=== PATIENT | male | born 1950 | race American Indian/Alaskan Native ===

== ENCOUNTER 2017-11-25 17:07 | Observation (INO) | payer MEDICARE, OTHER ==
[2017-11-25 17:17] VITALS: BMI 23.6
[2017-11-25 17:48] LABS: BASO # 0.01 K/mm3 (0.0-2.0); BASO % 0.3 % (0.0-3.0); GRAN # 1.72 (1.4-6.5); HEMOGLOBIN 11.8 g/dL (14.0-18.0); LYMPH # 1.5 (1.2-3.4); LYMPH % 43.6 % (22.0-35.0); MEAN CELL VOLUME 90.9 fl (80.0-105.0); MEAN CORPUSCULAR HEMOGLOBIN 31.6 pg (25.0-35.0); MEAN CORPUSCULAR HGB CONC 34.8 g/dl (31.0-37.0); MEAN PLATELET VOLUME 9.5 fl (7.0-11.0); MONO # 0.2 (0.1-0.6); MONO % 6.1 % (1.0-6.0); RBC 3.73 10^6/uL (3.5-6.1); WHITE BLOOD COUNT 3.4 10^3/ul (4.5-11.0)
[2017-11-25 18:04] LABS: ALB/GLOB RATIO 1.3 (1.1-1.8); ALBUMIN 4.2 g/dL (3.0-4.8); ALT/SGPT 60 U/L (7-56); AST/SGOT 228 U/L (17-59); BLOOD UREA NITROGEN 8 mg/dL (7-21); CALCIUM 10.1 mg/dL (8.4-10.5); GFR AFRICAN-AMERICAN > 60; GFR NON-AFRICAN AMERICAN > 60; MAGNESIUM 1.4 mg/dL (1.7-2.2)
[2017-11-25 18:11] LABS: INR 1.16 (0.93-1.08); PROTHROMBIN TIME 13.3 SECONDS (9.4-12.5)
[2017-11-25 18:12] LABS: B-TYPE NATRIURETIC PEPTIDE 108 pg/mL (0-450); PARTIAL THROMBOPLASTIN TIME 28.1 Seconds (25.1-36.5); TROPONIN I < 0.01 ng/mL
--- NOTE | 2017-11-25 19:01 | RAD ---
HISTORY: chest pain COMPARISON: No prior. FINDINGS: LUNGS: No active pulmonary disease. PLEURA: No significant pleural effusion identified, no pneumothorax apparent. CARDIOVASCULAR: Normal. OSSEOUS STRUCTURES: No significant abnormalities. VISUALIZED UPPER ABDOMEN: Normal. OTHER FINDINGS: None. IMPRESSION: No active disease.
[2017-11-25 19:56] LABS: URINE BILIRUBIN NEGATIVE (NEGATIVE); URINE BLOOD NEGATIVE (NEGATIVE); URINE GLUCOSE (UA) NEGATIVE (NEGATIVE); URINE LEUKOCYTE ESTERASE NEGATIVE Leu/uL (NEGATIVE); URINE NITRATE NEGATIVE (NEGATIVE); URINE PROTEIN TRACE mg/dL (<30 mg/dL)
[2017-11-25 19:57] LABS: URINE APPEARANCE CLEAR (CLEAR); URINE COLOR YELLOW (YELLOW)
--- NOTE | 2017-11-25 20:05 | ED PDOC ---
Arrival/HPI - General Chief Complaint: Chest Pain Time Seen by Provider: 11/25/17 17:25 Historian: Patient - History of Present Illness Narrative History of Present Illness (Text): 11/25/17 20:04 67yo male was bib BLS for complaint of sharp retrosternal chest pain since this morning. States pain is intermittent, but feels like "stabbing" pain. He did not take any medication for the pain. States he was seen at [facility] last year for same pain and was DC after negative stress test. Hr denies SOB, diaphoresis, cough, recent URI, Le edema, calf pain, fever, any other complaint. Past Medical History - Provider Review Nursing Documentation Reviewed: Yes - Cardiac Hx Cardiac Disorders: Yes Hx Hypertension: Yes - Musculoskeletal/Rheumatological Hx Musculoskeletal Disorders: Yes Hx Arthritis: Yes - Psychiatric Hx Substance Use: No Family/Social History - Physician Review Nursing Documentation Reviewed: Yes Family/Social History: Unknown Family HX Smoking Status: Heavy Smoker > 10 Cigarettes Daily Hx Alcohol Use: Yes Frequency of alcohol use: Few days per week Hx Substance Use: No Allergies/Home Meds Allergies/Adverse Reactions: Allergies No Known Allergies Allergy (Verified 11/25/17 17:17) Home Medications: Home Meds Medication Instructions Recorded Confirmed Unobtainable 11/25/17 11/25/17 Review of Systems - Physician Review All systems were reviewed & negative as marked: Yes - Review of Systems Constitutional: Normal Eyes: Normal ENT: Normal Respiratory: Normal Cardiovascular: Chest Pain. absent: Palpitations, Edema, Calf Pain, NORIEGA, Orthopnea Gastrointestinal: Normal Genitourinary Male: Normal Musculoskeletal: Normal Skin: Normal Neurological: Normal Endocrine: Normal Hemo/Lymphatic: Normal Psychiatric: Normal Physical Exam Vital Signs Reviewed: Yes Vital Signs Temp Pulse Resp BP Pulse Ox 11/25/17 23:07 76 18 154/100 H 100 11/25/17 22:30 80 175/102 H 11/25/17 17:25 98.0 F 86 18 136/88 96 Temperature: Afebrile Blood Pressure: Normal Pulse: Regular Respiratory Rate: Normal Appearance: Positive for: Well-Appearing, Non-Toxic, Comfortable Pain Distress: None Mental Status: Positive for: Alert and Oriented X 3 - Systems Exam Head: Present: Atraumatic, Normocephalic Pupils: Present: PERRL Extroacular Muscles: Present: EOMI Conjunctiva: Present: Normal Mouth: Present: Moist Mucous Membranes Neck: Present: Normal Range of Motion Respiratory/Chest: Present: Clear to Auscultation, Good Air Exchange. No: Respiratory Distress, Accessory Muscle Use, Wheezes, Decreased Breath Sounds, Rales, Retracting, Rhonchi, Tachypneic Cardiovascular: Present: Regular Rate and Rhythm, Normal S1, S2. No: Murmurs Abdomen: Present: Normal Bowel Sounds. No: Tenderness, Distention, Peritoneal Signs Back: Present: Normal Inspection Upper Extremity: Present: Normal Inspection. No: Cyanosis, Edema Lower Extremity: Present: Normal Inspection. No: Edema Neurological: Present: GCS=15, CN II-XII Intact, Speech Normal Skin: Present: Warm, Dry, Normal Color. No: Rashes Psychiatric: Present: Alert, Oriented x 3, Normal Insight, Normal Concentration Medical Decision Making ED Course and Treatment: 11/26/17 01:24 PT present with stated history. His first CE was negative. Potassium and Magnesium was repleted. EKG NSR @66bpmm. however secondary to pt's age, he will be admitted for further evaluation. Case was DW Dr. Hazel, while he was in ED and he accepted pt. He saw patent by the bedside. - Lab Interpretations Lab Results: 11/25/17 17:21 11/25/17 17:21 Lab Results 11/25/17 19:45: Urine Opiates Screen Negative, Urine Methadone Screen Negative, Ur Barbiturates Screen Negative, Ur Phencyclidine Scrn Negative, Ur Amphetamines Screen Negative, U Benzodiazepines Scrn Negative, U Oth Cocaine Metabols Negative, U Cannabinoids Screen Negative 11/25/17 19:45: Urine Color Yellow, Urine Appearance Clear, Urine pH 6.0, Ur Specific [place] 1.015, Urine Protein Trace H, Urine Glucose (UA) Negative, Urine Ketones Trace H, Urine Blood Negative, Urine Nitrate Negative, Urine Bilirubin Negative, Urine Urobilinogen 1.0 H, Ur Leukocyte Esterase Negative, Urine RBC 0 - 2, Urine WBC 0 - 2, Ur Epithelial Cells 0 - 2 11/25/17 17:21: Alcohol, Quantitative 137 H 11/25/17 17:21: Triglycerides 765 H, Cholesterol 197, LDL Cholesterol Direct 49 , HDL Cholesterol > 110 H 11/25/17 17:21: Sodium 144, Potassium 3.4 L, Chloride 100, Carbon Dioxide 28, Anion Gap 20, BUN 8, Creatinine 0.9, Est GFR ( Amer) > 60, Est GFR (Non- Af Amer) > 60, Random Glucose 98, Calcium 10.1, Magnesium 1.4 L, Total Bilirubin 2.3 H, AST 228 H, ALT 60 H, Alkaline Phosphatase 86, Lactate Dehydrogenase 671, Total Creatine Kinase 94, Troponin I < 0.01, NT-Pro-B Natriuret Pep 108, Total Protein 7.6, Albumin 4.2, Globulin 3.3, Albumin/ Globulin Ratio 1.3 11/25/17 17:21: PT 13.3 H, INR 1.16 H, APTT 28.1, D-Dimer, Quantitative 221 11/25/17 17:21: WBC 3.4 L, RBC 3.73, Hgb 11.8 L, Hct 33.9 L, MCV 90.9, MCH 31.6 , MCHC 34.8, RDW 16.0 H, Plt Count 199, MPV 9.5, Gran % 50.0, Lymph % (Auto) 43.6 H, [place] % (Auto) 6.1 H, Eos % (Auto) 0.0 L, Baso % (Auto) 0.3, Gran # 1.72 , Lymph # (Auto) 1.5, [place] # (Auto) 0.2, Eos # (Auto) 0.0, Baso # (Auto) 0.01 - RAD Interpretation Radiology Orders: 11/25/17 17:26 CHEST PORTABLE [RAD] Stat - Medication Orders Current Medication Orders: Aspirin (Ecotrin) 81 mg PO DAILY SUSY Atorvastatin Calcium (Lipitor) 40 mg PO DAILY SUSY Chlordiazepoxide (Librium) 25 mg PO Q4H PRN PRN Reason: Withdrawl Enoxaparin Sodium (Lovenox) 40 mg SC HS SUSY PRN Reason: Protocol Last Admin: 11/25/17 22:29 Dose: 40 mg MAR aPTT Document 11/25/17 22:29 AD (Rec: 11/25/17 22:30 AD [id number]) aPTT aPTT (secs) 28.1 Subcutaneous Administrations Document 11/25/17 22:29 AD (Rec: 11/25/17 22:30 AD [id number]) Injection Site MAR Injection Site Left Abdomen Charges for Administration # of Subcutaneous Administrations 1 Folic Acid (Folic Acid) 1 mg PO DAILY [facility] Haloperidol Lactate (Haldol) 2 mg IM Q8H PRN PRN Reason: Agitation Magnesium Sulfate 2 gm/ Sodium (Chloride) 104 mls @ 102 mls/hr IVPB Q3H [facility] Stop: 11/26/17 01:47 Last Admin: 11/25/17 22:51 Dose: 102 mls/hr eMAR Start Stop Document 11/25/17 22:51 AD (Rec: 11/25/17 22:51 AD [id number]) Intravenous Solution Start Date 11/25/17 Start Time 22:51 Multivitamins/Vitamin C 10 ml/Thiamine HCl 100 mg/ Folic Acid 1 mg/ Sodium Chloride 1,011.2 mls @ 100 mls/hr IV .Q10H7M [facility] Last Admin: 11/25/17 22:52 Dose: 100 mls/hr eMAR Start Stop Document 11/25/17 22:52 AD (Rec: 11/25/17 22:52 AD [id number]) Intravenous Solution Start Date 11/25/17 Start Time 22:52 Lorazepam (Ativan) 1 mg IVP Q4H PRN PRN Reason: Symptoms of alcohol withdrawl Metoprolol Tartrate (Lopressor) 25 mg PO BID [facility] Last Admin: 11/25/17 22:30 Dose: 25 mg MAR Pulse and Blood Pressure Document 11/25/17 22:30 AD (Rec: 11/25/17 22:31 AD [id number]) Pulse Pulse Rate (60-90) 80 Blood Pressure Blood Pressure (100/60-150/90) 175/102 Multivitamins/Minerals (Therapeutic-M Tab) 1 tab PO DAILY [facility] Nicotine (Nicoderm Cq) 1 patch TD DAILY [facility] Last Admin: 11/25/17 23:46 Dose: 1 patch MAR Transdermal Patch Site Document 11/25/17 23:46 CATHERINE (Rec: 11/25/17 23:46 CATHERINE [id number]) Transdermal Patch Site Transdermal Patch Site Left Shoulder [id number] Ethyl Esters (Lovaza) 2 gm PO BID [facility] Last Admin: 11/25/17 23:46 Dose: 2 gm Thiamine HCl (Vitamin B1 Tab) 100 mg PO DAILY [facility] Trazodone HCl (Desyrel) 50 mg PO HS PRN PRN Reason: Insomnia Discontinued Medications Aspirin (Aspirin) 325 mg PO STAT STA Stop: 11/25/17 17:26 Last Admin: 11/25/17 17:41 Dose: 325 mg Magnesium Oxide (Mag-Ox) 400 mg PO STAT STA Stop: 11/25/17 20:09 Last Admin: 11/25/17 20:46 Dose: 400 mg Potassium Chloride (K-Dur 20 Meq Er Tab) 40 meq PO STAT STA Stop: 11/25/17 20:09 Last Admin: 11/25/17 20:46 Dose: 40 meq Potassium Chloride (K-Dur 20 Meq Er Tab) 40 meq PO STAT STA Stop: 11/25/17 21:40 Last Admin: 11/25/17 22:30 Dose: 40 meq Disposition/Present on Arrival - Present on Arrival Any Indicators Present on Arrival: No History of DVT/PE: No History of Uncontrolled Diabetes: No Urinary Catheter: No History of Decub. Ulcer: No History Surgical Site Infection Following: None - Disposition Have Diagnosis and Disposition been Completed?: Yes Diagnosis: Chest pain Disposition: HOSPITALIZED Disposition Time: 20:00 Patient Problems: Current Active Problems Problem Status Onset Chest pain Acute Condition: FAIR
[2017-11-25] MEDS ORDERED: Magnesium Oxide 400 mg Tab UD PO STA (20:08)
[2017-11-25] MEDS ORDERED: Potassium Chloride 20 mEq ER Tab PO STA ×2 (20:08→21:39)
[2017-11-25 20:13] LABS: BARBITURATES, UR NEGATIVE (NEGATIVE); BENZODIAZEPINES, UR NEGATIVE (NEGATIVE); OPIATES, UR NEGATIVE (NEGATIVE); PHENCYCLIDINE, UR NEGATIVE (NEGATIVE)
[2017-11-25 20:17] LABS: URINE EPITHELIAL CELLS 0 - 2 /hpf (0-5); URINE RBC 0 - 2 /hpf (0-2); URINE WBC 0 - 2 /hpf (0-6)
[2017-11-25] MEDS ORDERED: Enoxaparin 40 mg Syringe SC SCH (22:00)
[2017-11-25 22:01] LABS: LDL CHOLESTEROL 49 mg/dL (0-129)
--- NOTE | 2017-11-25 22:01 | CP.PCM.HP ---
History of Present Illness - History of Present Illness History of Present Illness: 67 year old AA male with past medical history of Arthitis, HTN, presents because of chest pain. Patient states chest pain began 2 weeks ago, sudden onset , non reproducible. He says its located in left upper chest, does not radiate to arm or jaw, and describes it as a 8/10. He states the pain comes and goes, and it stays about the same. Does not worsen with activity. He also says he has some mild shortness of breath with the pain where he has to pause to catch his breath. He denies any nausea, vomiting, fever, chills, sore throat, or any other complaints at this time. PMH: Arthritis, HTN PSH: none Allergies: NKDA Social: says he cut down cigarettes from 2 packs to 4 cigs a day, alcohol every couple of days and rinks 1/2 a pint, occasional marijuana use, last marijuana use was a month ago Meds: does not recall, will confirm Family Hx: Arthritis Present on Admission - Present on Admission Any Indicators Present on Admission: No Review of Systems - Constitutional Constitutional: absent: Anorexia, Chills, Fever, Weakness - EENT Eyes: absent: Change in Vision Ears: absent: Ear Discharge, Ear Pain Nose/Mouth/Throat: absent: Nasal Congestion, Nasal Discharge - Cardiovascular Cardiovascular: Chest Pain, Dyspnea. absent: Irregular Heart Rhythm, Pain Radiating to Arm/Neck/Jaw, Lightheadedness, Radiating Pain, Rapid Heart Rate, Syncope - Respiratory Respiratory: Dyspnea. absent: Cough, Chest Congestion - Musculoskeletal Musculoskeletal: absent: Arthralgias, Joint Swelling - Neurological Neurological: absent: Dizziness, Numbness, Headaches, Tingling, Weakness Past Patient History - Past Social History Smoking Status: Heavy Smoker > 10 Cigarettes Daily - CARDIAC Hx Cardiac Disorders: Yes Hx Hypertension: Yes - MUSCULOSKELETAL/RHEUMATOLOGICAL Hx Musculoskeletal Disorders: Yes Hx Arthritis: Yes - PSYCHIATRIC Hx Substance Use: No - SURGICAL HISTORY Hx Surgeries: No Meds Allergies/Adverse Reactions: Allergies Allergy/AdvReac Type Severity Reaction Status Date / Time No Known Allergies Allergy Verified 11/25/17 17:17 Physical Exam - Constitutional Appears: Non-toxic, No Acute Distress, Unkempt - Head Exam Head Exam: ATRAUMATIC, NORMAL INSPECTION, NORMOCEPHALIC - Eye Exam Eye Exam: EOMI, Scleral icterus - ENT Exam ENT Exam: Mucous Membranes Moist - Respiratory Exam Respiratory Exam: Clear to Auscultation Bilateral, NORMAL BREATHING PATTERN - Cardiovascular Exam Cardiovascular Exam: REGULAR RHYTHM, +S1, +S2 - GI/Abdominal Exam GI & Abdominal Exam: Normal Bowel Sounds, Soft. absent: Tenderness - Extremities Exam Extremities exam: Positive for: pedal pulses present. Negative for: joint swelling, pedal edema - Neurological Exam Neurological exam: Alert, Oriented x3 Results - Vital Signs Recent Vital Signs: Last Vital Signs Temp 98.0 F 11/25/17 17:25 Pulse 86 11/25/17 17:25 Resp 18 11/25/17 17:25 BP 136/88 11/25/17 17:25 Pulse Ox 96 11/25/17 17:25 - Labs Result Diagrams: 11/25/17 17:21 11/25/17 17:21 Labs: Laboratory Results - last 24 hr 11/25/17 11/25/17 11/25/17 17:21 17:21 17:21 WBC 3.4 L RBC 3.73 Hgb 11.8 L Hct 33.9 L MCV 90.9 MCH 31.6 MCHC 34.8 RDW 16.0 H Plt Count 199 MPV 9.5 Gran % 50.0 Lymph % (Auto) 43.6 H [place] % (Auto) 6.1 H Eos % (Auto) 0.0 L Baso % (Auto) 0.3 Gran # 1.72 Lymph # (Auto) 1.5 [place] # (Auto) 0.2 Eos # (Auto) 0.0 Baso # (Auto) 0.01 PT 13.3 H INR 1.16 H APTT 28.1 D-Dimer, Quantitative 221 Sodium 144 Potassium 3.4 L Chloride 100 Carbon Dioxide 28 Anion Gap 20 BUN 8 Creatinine 0.9 Est GFR ( Amer) > 60 Est GFR (Non-Af Amer) > 60 Random Glucose 98 Calcium 10.1 Magnesium 1.4 L Total Bilirubin 2.3 H AST 228 H ALT 60 H Alkaline Phosphatase 86 Lactate Dehydrogenase 671 Total Creatine Kinase 94 Troponin I < 0.01 NT-Pro-B Natriuret Pep 108 Total Protein 7.6 Albumin 4.2 Globulin 3.3 Albumin/Globulin Ratio 1.3 Urine Color Urine Appearance Urine pH Ur Specific [place] Urine Protein Urine Glucose (UA) Urine Ketones Urine Blood Urine Nitrate Urine Bilirubin Urine Urobilinogen Ur Leukocyte Esterase Urine RBC Urine WBC Ur Epithelial Cells Urine Opiates Screen Urine Methadone Screen Ur Barbiturates Screen Ur Phencyclidine Scrn Ur Amphetamines Screen U Benzodiazepines Scrn U Oth Cocaine Metabols U Cannabinoids Screen Alcohol, Quantitative 11/25/17 11/25/17 11/25/17 17:21 19:45 19:45 WBC RBC Hgb Hct MCV MCH MCHC RDW Plt Count MPV Gran % Lymph % (Auto) [place] % (Auto) Eos % (Auto) Baso % (Auto) Gran # Lymph # (Auto) [place] # (Auto) Eos # (Auto) Baso # (Auto) PT INR APTT D-Dimer, Quantitative Sodium Potassium Chloride Carbon Dioxide Anion Gap BUN Creatinine Est GFR ( Amer) Est GFR (Non-Af Amer) Random Glucose Calcium Magnesium Total Bilirubin AST ALT Alkaline Phosphatase Lactate Dehydrogenase Total Creatine Kinase Troponin I NT-Pro-B Natriuret Pep Total Protein Albumin Globulin Albumin/Globulin Ratio Urine Color Yellow Urine Appearance Clear Urine pH 6.0 Ur Specific [place] 1.015 Urine Protein Trace H Urine Glucose (UA) Negative Urine Ketones Trace H Urine Blood Negative Urine Nitrate Negative Urine Bilirubin Negative Urine Urobilinogen 1.0 H Ur Leukocyte Esterase Negative Urine RBC 0 - 2 Urine WBC 0 - 2 Ur Epithelial Cells 0 - 2 Urine Opiates Screen Negative Urine Methadone Screen Negative Ur Barbiturates Screen Negative Ur Phencyclidine Scrn Negative Ur Amphetamines Screen Negative U Benzodiazepines Scrn Negative U Oth Cocaine Metabols Negative U Cannabinoids Screen Negative Alcohol, Quantitative 137 H Assessment & Plan - Assessment and Plan (Free Text) Assessment: 67 year old AA male with past medical history of Arthitis, HTN, presents because of chest pain. Patient states chest pain began 2 weeks ago, sudden onset , non reproducible. Plan: 1. Chest Pain Rule out ACS -EKG pending official read -initial trops negative, will trend x3 -CK trend x 3 -Cardioloy consulted, donald Husain recs -Toprol 25 BID -Aspirin 81mg -Lipitor 40mg -EKG in AM -cbc, cmp daily -Echo pending 2. Leukopenia -HIV panel pending 3. Hypokalemia -repleted, monitor 4. Elevated LFT -hep panel pending -Abd US pending -T Bili increased -alk phos not elevated 5. Hypomagnesia -repleted, monitor 6. Alcohol abuse -CIWA protocol -Ativan 1mg Q4 PRN -alcohol level 137 -UDS negative 7. Tobacco use -smoking cessation discussed -nicotine patch GI/DVT -lovenox
[2017-11-25 22:09] LABS: HDL CHOLESTEROL > 110 mg/dL (29-60)
[2017-11-25] MEDS: Magnesium Sulfate 2 GM in Sodium Chloride 0.9% 100 ML IVPB SCH (22:51)
[2017-11-25] MEDS: Multivitamin (MVI) 10 ML, Thiamine 100 MG, Folic Acid 1 MG in Sodium Chloride 0.9% 1,00... IV SCH (22:52)
--- NOTE | 2017-11-25 23:08 | CARD ---
APPROVED REPORT EKG Measurement Heart [id number] <Conclusion> Normal sinus rhythm Minimal voltage criteria for LVH, may be normal variant Borderline ECG
[2017-11-25] MEDS: Omega-3-Acid Ethyl Esters 1 GM Cap PO SCH (23:46)
[2017-11-26 00:37] LABS: TROPONIN I < 0.01 ng/mL
[2017-11-26] MEDS: Magnesium Sulfate 2 GM in Sodium Chloride 0.9% 100 ML IVPB SCH (01:43)
[2017-11-26] MEDS: Multivitamin (MVI) 10 ML, Thiamine 100 MG, Folic Acid 1 MG in Sodium Chloride 0.9% 1,00... IV SCH ×2 (04:09→09:45)
[2017-11-26 07:17] LABS: BASO # 0.01 K/mm3 (0.0-2.0); BASO % 0.3 % (0.0-3.0); EOS % 0.3 % (1.5-5.0); GRAN # 2.49 (1.4-6.5); GRAN % 62.3 % (50.0-68.0); HEMOGLOBIN 11.2 g/dL (14.0-18.0); LYMPH # 1.2 (1.2-3.4); LYMPH % 29.8 % (22.0-35.0); MEAN CELL VOLUME 90.5 fl (80.0-105.0); MEAN CORPUSCULAR HEMOGLOBIN 31.2 pg (25.0-35.0); MEAN CORPUSCULAR HGB CONC 34.5 g/dl (31.0-37.0); MONO # 0.3 (0.1-0.6); MONO % 7.3 % (1.0-6.0); RBC 3.59 10^6/uL (3.5-6.1); RED CELL DISTRIBUTION WIDTH 16.1 % (11.5-14.5)
[2017-11-26 07:41] LABS: TROPONIN I < 0.01 ng/mL
[2017-11-26 07:43] LABS: ALB/GLOB RATIO 1.3 (1.1-1.8); ALBUMIN 3.9 g/dL (3.0-4.8); BILIRUBIN,DIRECT 0.5 mg/dL (0.0-0.4); MAGNESIUM 2.3 mg/dL (1.7-2.2)
[2017-11-26 07:47] LABS: ALB/GLOB RATIO 1.3 (1.1-1.8); ALT/SGPT 74 U/L (7-56); AST/SGOT 388 U/L (17-59); BLOOD UREA NITROGEN 6 mg/dL (7-21); CALCIUM 8.9 mg/dL (8.4-10.5); GFR AFRICAN-AMERICAN > 60; GFR NON-AFRICAN AMERICAN > 60
[2017-11-26 08:00] LABS: FREE T4 0.74 ng/dL (0.78-2.19)
--- NOTE | 2017-11-26 08:03 | HP ---
HISTORY OF PRESENT ILLNESS: The patient is a 67-year-old male who has never been to [facility] came to the [facility] via EMS, [facility] ambulance complaining of midsternal chest pain for a week associated with shortness of breath, nonradiating pain. The patient came to the ER via the [facility] ambulance. According to the ER physician and PA evaluation, the patient came with above complaints. The patient denies any dizziness, denies hemoptysis, denies melena, denies hematochezia, denies nausea, denies vomiting, denies diarrhea. CODE STATUS: Full code. LIVING WILL/ADVANCE DIRECTIVE: None. ALLERGIES: None. HEIGHT: 5 feet, 9 inches. BODY WEIGHT: 160. BODY MASS INDEX: 24. HOME MEDICATIONS: None listed. SOCIAL HISTORY: Positive for smoking. Positive for alcohol on a daily basis. Denies any communicable transmissible disease. PAST MEDICAL HISTORY: According to the patient is positive for coronary artery disease, history of cardiac catheterization, history of minor heart attack many years ago, history of hypertension, history of nicotine and alcohol dependence, history of cardiac catheterization, history of hypertension, history of alcohol and nicotine addiction and dependence. I have advised the patient's nephew who is at the bedside to bring all the patient's medication, can be listed in the home medications. The patient's past medical history is positive for above. OCCUPATIONAL HISTORY: Disabled. The patient has been followed up at [facility] when the patient had cardiac catheterization. SOCIAL HISTORY: Positive for smoking. Positive for alcohol. PHYSICAL EXAMINATION GENERAL: The patient is seen in stretcher #1. VITAL SIGNS: T-max 98, heart rate 86. Telemetry shows sinus rhythm, blood pressure 136/88, respirations 18, O2 saturation 96%. HEENT: Head examination, normocephalic and atraumatic. HEENT examination shows pinkish pale conjunctivae. Anicteric sclerae. Dry oral mucosa. No neck rigidity. CHEST: Kyphosis. LUNGS: Shows no rales, crackles or wheezing. CARDIOVASCULAR: Shows S1, S2. Regular rhythm. Questionable soft systolic murmur, left sternal border, right second intercostal space. ABDOMEN: Soft. Positive bowel sounds. GENITALIA: Male. RECTAL: Deferred. No costovertebral angle tenderness noted. No hepatosplenomegaly noted. No guarding. No rigidity, no rebound tenderness. EXTREMITIES: Shows no pitting edema, no calf numbness, no Robert sign. MUSCULOSKELETAL: Shows a body mass index of 24. Cranial nerves II through XII intact. Gait examination, independent. VASCULAR: Palpable pulses. PSYCHIATRIC: Negative. The patient has alcohol odor in the breath. DIAGNOSTICS WBC 3.4, hemoglobin/hematocrit 11.8/33.9, platelets 199,000. PT/PTT 13.3/28.1, D-dimer 212. Sodium 144, potassium 3.4, chloride 100, CO2 28, anion gap 20, BUN 8, creatinine 0.9. GFR greater than 60, glucose 98, calcium 10.1, magnesium 1.4, total bilirubin 2.3, AST 228, ALT 60. Troponin is 0.01. BNP is 108. Urine: The pH 6.0, specific gravity 1.015, trace protein, trace ketones. Urine drug screen is negative for all listed items. The patient's chest x-ray was done in the emergency room, which was negative. EKG done in the emergency room showed sinus rhythm, hypertensive cardiovascular disease, nonspecific ST changes, left axis deviation. The patient was seen in the emergency room by the [facility]. The patient was advised to be hospitalized for evaluation of chest pain. IMPRESSION AND PLAN 1. Chest pain. 2. Questionable unstable angina versus stable angina 3. History of myocardial infarction and coronary artery disease. 4. Active nicotine dependence. 5. Active alcohol dependence and intoxication. 6. Leukopenia. 7. Anemia from leukopenia. 8. Hypokalemia. 9. Hypomagnesemia. 10. Transaminitis with hyperbilirubinemia. 11. Possible alcohol hepatitis. 12. Hypertensive cardiovascular disease. 13. Left axis deviation. 14. History of cardiac catheterization done at the [facility] 15. Hypertension. 16. Lymphocytosis. 17. Proteinuria and ketonuria. PLAN: At this time, the patient is to be admitted to telemetry observation. The patient has been ordered repeat labs for the morning. The patient has been consulted with cardiology. The patient is started on an Ativan 1 mg IV q. 4 hours p.r.n. The patient is started on banana bag, Desyrel 50 mg at bedtime, folic acid 1 mg daily, Haldol 2 mg IM q. 8h. p.r.n. The patient has been supplemented with potassium 40 mEq x2 doses, Librium 25 mg q. 4 p.r.n., magnesium 2 g IV has been ordered x2 doses, nicotine patch 21 mg daily ordered ,therapeutic vitamin and thiamine ordered. Repeat EKG ordered. Regular diet ordered. The patient is on alcohol withdrawal protocol. The patient has been ordered ESR. The patient has been ordered echo. The patient has been ordered out of bed, CAMILLA stockings, SCDs, DVT prophylaxis.. Out of bed ordered. Physical therapy, occupational therapy ordered. SCDs, CAMILLA stockings ordered. The patient will be started on beta-blockers. The patient will be started on GI and DVT prophylaxis. Statins will be ordered. Aspirin, antiplatelet therapy will be ordered. Echo with Doppler has been ordered. At present, the patient will be ordered HIV fourth generation; hepatitis A, B, C serologies will be ordered. The patient will be ordered ultrasound of the abdomen. The patient at present was seen in the emergency room in bed 1. At present, the patient's further management will be dependent upon the patient's clinical condition, hemodynamic status and as per the patient response to therapeutic intervention, as per the patient's diagnostic test results and as per recommendation by cardiology. The patient was counseled about cessation of smoking and alcohol with the patient's nephew present at the bedside. The patient and the patient's nephew was advised the need for patient's hospitalization. Need for further diagnostic therapeutic intervention and need for hospitalization was discussed and explained to the patient and the patient's nephew at length and all questions concerned answered. Dictated and electronically signed. Pablo Hazel MD <
--- NOTE | 2017-11-26 09:20 | US ---
HISTORY: liver function COMPARISON: None. TECHNIQUE: Sonographic evaluation of the abdomen. FINDINGS: LIVER: Measures 15.4 cm. Diffusely ink echogenicity of the liver parenchyma. Consistent with fatty infiltration. No mass. No biliary ductal dilatation. GALLBLADDER: Unremarkable. No gallstones. COMMON BILE DUCT: Measures 6 mm. No stones. No dilatation. PANCREAS: Unremarkable as visualized. No mass. No ductal dilatation. RIGHT KIDNEY: Measures 9.8cm. Normal echogenicity. No calculus, mass, or hydronephrosis. LEFT KIDNEY: Measures 10.7cm. Normal echogenicity. No calculus, mass, or hydronephrosis. SPLEEN: Normal in size and contour. No mass. AORTA: No aneurysmal dilatation. IVC: Unremarkable. OTHER FINDINGS: None. IMPRESSION: Mild fatty infiltration of the liver. No evidence of cholelithiasis or cholecystitis.
[2017-11-26] MEDS: Omega-3-Acid Ethyl Esters 1 GM Cap PO SCH (09:45)
[2017-11-26] MEDS ORDERED: Multivitamin With Minerals Tab PO SCH (10:00)
--- NOTE | 2017-11-26 10:22 | CP.PCM.PN ---
Subjective - Date & Time of Evaluation Date of Evaluation: 11/26/17 Time of Evaluation: 09:30 - Subjective Subjective: IM Progress Note for Dr. Hazel Service Patient seen and examined at bedside. S/p Echo this AM, official read pending. No acute events reported overnight. Patient denies acute complaints, including chest pain (now resolved), shortness of breath, emesis, diarrhea, focal weakness, or tremors. Objective - Vital Signs/Intake and Output Vital Signs (last 24 hours): Temp Pulse Resp BP Pulse Ox 98.3 F 76 20 153/90 H 97 11/26/17 06:00 11/26/17 06:00 11/26/17 06:00 11/26/17 06:00 11/26/17 06:00 Intake and Output: 11/26/17 11/26/17 06:59 18:59 Intake Total 1160 Output Total 400 Balance 760 - Medications Medications: Current Medications Aspirin (Ecotrin) 81 mg PO DAILY [facility] Last Admin: 11/26/17 09:44 Dose: 81 mg Atorvastatin Calcium (Lipitor) 40 mg PO DAILY [facility] Last Admin: 11/26/17 09:44 Dose: 40 mg Chlordiazepoxide (Librium) 25 mg PO Q4H PRN PRN Reason: Withdrawl Enoxaparin Sodium (Lovenox) 40 mg SC HS [facility] PRN Reason: Protocol Last Admin: 11/25/17 22:29 Dose: 40 mg Folic Acid (Folic Acid) 1 mg PO DAILY [facility] Last Admin: 11/26/17 09:44 Dose: 1 mg Haloperidol Lactate (Haldol) 2 mg IM Q8H PRN PRN Reason: Agitation Multivitamins/Vitamin C 10 ml/Thiamine HCl 100 mg/ Folic Acid 1 mg/ Sodium Chloride 1,011.2 mls @ 100 mls/hr IV .Q10H7M [facility] Last Admin: 11/26/17 09:45 Dose: 100 mls/hr Lorazepam (Ativan) 1 mg IVP Q4H PRN PRN Reason: Symptoms of alcohol withdrawl Metoprolol Tartrate (Lopressor) 25 mg PO BID [facility] Last Admin: 11/26/17 09:44 Dose: 25 mg Multivitamins/Minerals (Therapeutic-M Tab) 1 tab PO DAILY [facility] Last Admin: 11/26/17 09:49 Dose: 1 tab Nicotine (Nicoderm Cq) 1 patch TD DAILY [facility] Last Admin: 11/26/17 09:46 Dose: 1 patch Hplir-1-Ueod Ethyl Esters (Lovaza) 2 gm PO BID [facility] Last Admin: 11/26/17 09:45 Dose: 2 gm Thiamine HCl (Vitamin B1 Tab) 100 mg PO DAILY [facility] Last Admin: 11/26/17 09:50 Dose: 100 mg Trazodone HCl (Desyrel) 50 mg PO HS PRN PRN Reason: Insomnia - Labs Labs: 11/26/17 06:30 11/26/17 06:30 PT 13.3 SECONDS (9.4-12.5) H 11/25/17 17:21 INR 1.16 (0.93-1.08) H 11/25/17 17:21 APTT 28.1 Seconds (25.1-36.5) 11/25/17 17:21 - Constitutional Appears: Well, Non-toxic, No Acute Distress - Head Exam Head Exam: ATRAUMATIC, NORMAL INSPECTION, NORMOCEPHALIC - Eye Exam Eye Exam: EOMI, Normal appearance. absent: Conjunctival injection, Scleral icterus Pupil Exam: absent: Irregular, Unequal - ENT Exam ENT Exam: Mucous Membranes Moist - Neck Exam Neck Exam: Full ROM, Normal Inspection - Respiratory Exam Respiratory Exam: Decreased Breath Sounds (mild diffusely decreased breath sounds), Clear to Ausculation Bilateral, NORMAL BREATHING PATTERN. absent: Accessory Muscle Use, Chest Wall Tenderness, Rales, Rhonchi, Wheezes - Cardiovascular Exam Cardiovascular Exam: REGULAR RHYTHM, RRR, +S1, +S2. absent: Bradycardia, Tachycardia, Irregular Rhythm, JVD, +S4 - GI/Abdominal Exam GI & Abdominal Exam: Soft, Normal Bowel Sounds. absent: Tenderness - Extremities Exam Extremities Exam: Normal Inspection. absent: Calf Tenderness, Joint Swelling, Pedal Edema, Tenderness - Neurological Exam Neurological Exam: Alert, Awake Additional comments: awake and alert, following all commands, moving all extremities spontaneously no resting or intention tremors noted - Psychiatric Exam Psychiatric exam: Normal Affect, Normal Mood - Skin Skin Exam: Dry, Intact, Normal Color, Warm Assessment and Plan - Assessment and Plan (Free Text) Assessment: This is a 67 yo AA M with PMH of Arthitis, HTN, and alcohol abuse who presented for 2 weeks of sudden onset chest pain, non-reproducible, being ruled out for ACS and on CIWA protocol for due to EtOH lvl 137 on admission. Plan: 1) Chest Pain - Rule out ACS -EKG NSR at 66 bpm, normal intervals, no ST-T wave changes; repeat EKG similar -trops negative x3 -CK wnl x 3 -Cardioloy (Dr. Husain) consulted, appreciate all recs -Continue Toprol 25 BID, Aspirin 81mg, Lipitor 40mg -Echo obtained, pending official read 2) Leukopenia -improved from 3.4 to 4.0 -HIV panel received, pending results 3) Hypokalemia - resolved -repleted, 3.9 today 4) Elevated LFT -elevated TBili (2.2, was 2.3), elevated DBili (0.5), AST/ALT worsened to 368/75 -hep panel pending -Abd US: mild fatty liver, no signs of cholecystitis/choledocolithiasis 5) Hypomagnesia - resolved -repleted, 2.3 today 6) Alcohol abuse -CIWA protocol, last recorded CIWA score 0 as per Nursing -Ativan 1mg Q4 PRN -alcohol level 137 -UDS negative 7. Tobacco use -smoking cessation discussed -nicotine patch Dispo: Tele obs, pending cardiac clearance for discharge, on CIWA protocol FEN: Regular diet Access: Peripheral IV Consults: Cardio Ppx: Protonix for GI, Lovenox for DVT Patient seen, reviewed, and discussed with attending, Dr. Hazel.
[2017-11-26] MEDS ORDERED: Potassium Chloride 20 mEq ER Tab PO SCH (10:30)
--- NOTE | 2017-11-26 11:44 | CARD ---
APPROVED REPORT EXAM: Two-dimensional and M-mode echocardiogram with Doppler and color Doppler. INDICATION Chest Pain 2D DIMENSIONS Left Atrium (2D)3.6 (1.6-4.0cm)IVSd1.1 (0.7-1.1cm) LVDd4.2 (3.9-5.9cm)PWd1.0 (0.7-1.1cm) LVDs2.9 (2.5-4.0cm)FS (%) 29.9 % LVEF (%)57.5 (>50%) M-Mode DIMENSIONS Aortic Root2.80 (2.2-3.7cm)Aortic Cusp Exc.1.80 (1.5-2.0cm) Aortic Valve AoV Peak Qlwkdtuc195.0cm/Emerald Peak GR.21mmHg Mitral Valve MV E Xzfcwwim64.9cm/sMV A Jpdbnsft423.0cm/sE/A ratio0.9 TDI E/Lateral E'0.0E/Medial E'0.0 Tricuspid Valve TR Peak Ylwjfnbz127eh/sRAP [id number] Peak Gr.31mmHg [id number] LEFT VENTRICLE The left ventricle is normal size. There is borderline concentric left ventricular hypertrophy. The left ventricular function is normal. The left ventricular ejection fraction is within the normal range. There is normal LV segmental wall motion. Transmitral Doppler flow pattern is Grade I-abnormal relaxation pattern. RIGHT VENTRICLE The right ventricle is normal size. There is normal right ventricular wall thickness. The right ventricular systolic function is normal. ATRIA The left atrium size is normal. The right atrium size is normal. AORTIC VALVE The aortic valve is mildly thickened. No aortic regurgitation is present. There is no aortic valvular stenosis. MITRAL VALVE The mitral valve is mildly thickened. Mitral regurgitation is trace. There is no mitral valve stenosis. TRICUSPID VALVE There is mild pulmonary hypertension. GREAT VESSELS The aortic root is normal in size. The IVC is normal in size and collapses >50% with inspiration. PERICARDIAL EFFUSION There is a trace loculated anterior pericardial effusion. <Conclusion> The left ventricle is normal size. There is borderline concentric left ventricular hypertrophy. The left ventricular function is normal. The left ventricular ejection fraction is within the normal range. There is normal LV segmental wall motion. Transmitral Doppler flow pattern is Grade I-abnormal relaxation pattern. There is mild pulmonary hypertension.
--- NOTE | 2017-11-26 12:18 | CARD ---
APPROVED REPORT EKG Measurement Heart [id number] <Conclusion> Normal sinus rhythm Minimal voltage criteria for LVH, may be normal variant Borderline ECG
[2017-11-26 12:27] VITALS: BP 149/98; PULSE 64; RESP 18; TEMP 98.2; O2SAT 99
[2017-11-26 13:13] LABS: HEPATITIS B SURFACE AG Negative (NEGATIVE)
[2017-11-26 13:18] LABS: HEPATITIS A IGM NEGATIVE (NEGATIVE); HEPATITIS B CORE AB NEGATIVE (NEGATIVE)
[2017-11-26 13:30] LABS: HEPATITIS C ANTIBODY NEGATIVE (NEGATIVE)
[2017-11-26] MEDS ORDERED: Pantoprazole 20 mg EC Tab PO SCH (16:00)
--- NOTE | 2017-11-27 01:17 | CON ---
DATE: 11/26/2017 CARDIOLOGY CONSULTATION HISTORY OF PRESENT ILLNESS: The patient is a 67-year-old male who presented with chest pain. PAST MEDICAL HISTORY: The patient's past medical history is notable for [facility], which he stated was unremarkable. Patient's past medical history is notable for history of alcohol use. The patient is a smoker with half a pack a day for many years. Patient denies shortness of breath. No previous heart attack noted. SOCIAL HISTORY: He is an active smoker. REVIEW OF SYSTEMS: Fourteen-point review of systems is reviewed in detail. The patient denies all cardiac symptomatology. PHYSICAL EXAMINATION: VITAL SIGNS: Blood pressure is 149/98, heart rate is in the 60s. NECK: Negative JVD. LUNGS: Without rales. HEART: With S1, S2. EXTREMITIES: Without edema. LABORATORY DATA: EKG shows normal sinus rhythm with no acute changes. The hemoglobin is 11.2. Chemistries, BUN and creatinine are unremarkable. Troponins are negative x2. Liver function tests are elevated. Magnesium is 2.3. IMPRESSION: 1. Transient chest pain, which is now resolved. 2. No evidence for acute coronary syndrome. 3. Chronic obstructive pulmonary disease. 4. Hypertension. 5. Elevated liver function test, which may be alcohol-related. 6. Echocardiogram reveals good left ventricular function. PLAN: Given these findings, there is no evidence for acute coronary syndrome. Patient can be discharged today. I have discussed with the patient about cessation of smoking. He is agreeable to an outpatient stress test. Jesse Husain MD
--- NOTE | 2017-11-27 19:54 | DS ---
HISTORY OF PRESENT ILLNESS: The patient is seen in room 378, bed 2. Overnight nurse's notes were reviewed. The patient denies any chest pain, denies any shortness of breath, denies any palpitations, denies any nausea. Admission symptoms are all resolved according to the patient. The patient is symptom free after the patient has been admitted and treated. PHYSICAL EXAMINATION: VITAL SIGNS: T-max 98.2. Telemetry shows sinus rhythm, heart rate in 60s, 70s, and 80s; blood pressure 136/88, 175/102, 154/100, 167/102, 153/90, 149/98; respirations 20; O2 sat 97% to 99%. HEENT: Head: Normocephalic, atraumatic. Pinkish pale conjunctivae. Anicteric sclerae. No oropharyngeal lesion. NECK: No neck rigidity. There is no jugular venous distention. CHEST: Kyphosis. LUNGS: No rales, crackles, or wheezing. CARDIOVASCULAR: S1, S2, regular rhythm. No audible murmur, gallop, or rub. Questionable soft systolic murmur in the left sternal border, left second intercostal space. ABDOMEN: Soft. Positive bowel sounds. No hepatosplenomegaly noted. No guarding. No rigidity. No rebound tenderness. No costovertebral angle tenderness. GENITALIA: Male. RECTAL: Deferred. EXTREMITIES: No pitting edema, no calf tenderness, no Homans sign. NEUROLOGIC: The patient is alert, awake, and oriented x3. Cranial nerves II through XII grossly intact. Gait examination is independent. Motor strength is 5/5 in upper and lower extremities. VASCULAR: Palpable pulses. MUSCULOSKELETAL: Body mass index of 23. DIAGNOSTIC DATA: 11/26/2017, WBC 4.0, hemoglobin/hematocrit 11.2/32.5, and platelets 173. Sodium 141, potassium 3.9, chloride 101, CO2 of 26, anion gap 17, BUN 6, creatinine 0.7, GFR greater than 60, glucose 86, calcium 8.9, magnesium 2.3. Total bilirubin 2.2, direct bilirubin 0.5, AST 368, ALT 75. Troponin all three sets are negative. BNP is negative. LFTs are negative. Triglyceride 765, HDL greater than 110, LDL 49, cholesterol 197. Urine drug screen negative. Alcohol level 137 yesterday. Hepatitis A, B, C serologies are negative. Abdominal ultrasound noted. Chest x-ray, EKG, and echocardiogram noted. The patient is seen by peanut separator, Dr. Husain, cleared for discharge. The patient was advised outpatient stress test on 12/03/2017. IMPRESSION AND PLAN: 1. Chest pain, etiology undetermined with negative cardiac enzyme. 2. Hypertension. 3. Anemia and leukopenia. 4. Severe hypertriglyceridemia. 5. Trace proteinuria, ketonuria. 6. Alcohol intoxication with alcohol level of greater than 130. 7. History of hypertension. 8. Left ventricular ejection fraction of 57%. 9. Pulmonary arterial hypertension with right ventricular systolic pressure of 41 mmHg. 10. Concentric left ventricular hypertrophy. 11. Mildly thickened aortic valve. 12. Trace mitral regurgitation with mildly thickened mitral valve. 13. Hepatic steatosis with fatty infiltration of the liver with transaminitis and hyperbilirubinemia. 14. Possible alcoholic hepatitis. 15. Hypertensive cardiovascular disease with left axis deviation. At this time, the patient was cleared for discharge by Dr. Husain for scheduled outpatient stress test on 12/03/2017. DISCHARGE MEDICATIONS: Aspirin 81 mg daily, Lopressor 25 mg twice a day, nicotine patch 21 mg daily, Lovaza 2 g twice a day, Lipitor 40 mg daily, Protonix 40 mg daily, thiamine 100 mg daily. The patient was advised to be discharged after cleared by Dr. Husain. The patient's discharge medications as per ambulatory orders plus new prescription. The patient was advised to stop alcohol and smoking. Follow up with Dr. Hazel within one week.. The patient's medication was sent to the [facility] pharmacy, plus the patient's prescription was also given to the patient upon discharge. During this hospitalization, the patient was extensively counseled about cessation of alcohol and smoking. The patient was advised to comply with the recommendation. The patient was also advised that the patient needs discharge followup with Dr. Hazel and discharge followup with Dr. Husain for outpatient stress test on 12/03/2017. Time spent in the entire discharge process more than 45 minutes. Dictated and electronically signed, not read. Pablo Hazel MD
== END 2017-11-26 15:56 | disposition home or self-care (01) ==
LOC: ED 17:07 → ERH 20:12 → 3RSO 23:21
PROVIDERS: ADMIT Internal Medicine; ATTEND Internal Medicine
DX: R07.9 Chest pain, unspecified (principal); D64.9 Anemia, unspecified; D72.819 Decreased white blood cell count, unspecified; E78.1 Pure hyperglyceridemia; F10.229 Alcohol dependence with intoxication, unspecified; I11.9 Hypertensive heart disease without heart failure; E87.6 Hypokalemia; E83.42 Hypomagnesemia; D72.820 Lymphocytosis (symptomatic); I25.10 Atherosclerotic heart disease of native coronary artery without angina pectoris; I25.2 Old myocardial infarction; I27.21 Secondary pulmonary arterial hypertension; J44.9 Chronic obstructive pulmonary disease, unspecified; K76.0 Fatty (change of) liver, not elsewhere classified; M19.90 Unspecified osteoarthritis, unspecified site; R40.2412 Glasgow coma scale score 13-15, at arrival to emergency department; F17.210 Nicotine dependence, cigarettes, uncomplicated; R80.9 Proteinuria, unspecified; R82.4 Acetonuria
CPT/HCPCS: 36415; 71045; 76700; 80053; 80061; 80074; 80076; 80320; 80324; 80345; 80346; 80349; 80353; 80358; 80361; 81001; 82550; 83615; 83690; 83735; 83880; 83992; 84439; 84443; 84484; 85025; 85378; 85610; 85651; 85730; 87389; 93005; 93306; 96372; 97116; 97161; 99285; G0378; G8978; G8979; G8980; J1650; J3411; J3475; J7040